=== PATIENT | female | born 1955 ===

== ENCOUNTER 2023-06-03 15:14 | Outpatient (CLI) | payer OTHER, SELFPAY | END 2023-06-03 15:15 | disposition home or self-care (01) | PROVIDERS: PCP Emergency Medicine; Visit Provider Emergency Medicine | DX: I10 Essential (primary) hypertension (principal); E78.5 Hyperlipidemia, unspecified | CPT/HCPCS: 80048; 80061 ==

== ENCOUNTER 2024-08-10 11:37 | Outpatient (CLI) | payer OTHER, SELFPAY | END 2024-08-10 11:38 | disposition home or self-care (01) | PROVIDERS: PCP Emergency Medicine; Visit Provider Emergency Medicine | DX: R63.4 Abnormal weight loss (principal); Z68.1 Body mass index [BMI] 19.9 or less, adult | CPT/HCPCS: 80053; 84439; 84443; 84480; 86140 ==

== ENCOUNTER 2024-09-06 14:18 | Outpatient (CLI) | payer OTHER, SELFPAY | END 2024-09-06 14:19 | disposition home or self-care (01) | PROVIDERS: PCP Emergency Medicine; Visit Provider Emergency Medicine | DX: E05.90 Thyrotoxicosis, unspecified without thyrotoxic crisis or storm (principal); R06.02 Shortness of breath | CPT/HCPCS: 83520; 84439; 84443; 84481 ==

== ENCOUNTER 2024-10-03 13:41 | Outpatient (CLI) | payer OTHER, SELFPAY ==
--- NOTE | 2024-10-03 14:00 | CRLHL7_ITS ---
For Patients: As a result of the Century Cures Act, medical imaging exams and procedure reports are released immediately into your electronic medical record. You may view this report before your referring provider. If you have questions, please contact your health care provider. INDICATION: Unintentional weight loss. TECHNIQUE: CT chest, abdomen and pelvis acquired with 48 cc Isovue 370 IV contrast. COMPARISON: None. FINDINGS: CHEST Lungs and pleura: Lungs are clear. No suspicious nodules or infiltrates. Emphysema present. No effusions, thickening, or pneumothorax. Heart and vasculature: Mild ascending aortic aneurysm measuring 3.9 cm. Moderate cardiomegaly with particular enlargement of the left atrium and ventricle. Unremarkable pulmonary artery. No pulmonary embolism. Lymph node/mediastinum: No mediastinal, hilar, or axillary adenopathy. Chest wall: Normal. Bones: No suspicious bone lesions. ABDOMEN AND PELVIS: Liver: Small cystic lesion of doubtful significance in the lower lateral right lobe. Liver is otherwise unremarkable. Gallbladder and bile ducts: There is gallbladder hydrops. Common bile duct is dilated up to 11 mm. Proximal pancreatic duct is also dilated. Pancreas: Proximal dilatation of the pancreatic duct. Remainder of the pancreas is unremarkable. Spleen: Normal in caliber. No masses. Adrenal glands: Unremarkable. No masses. Kidneys: A 2 cm nodule or dense cystic lesion in the lateral cortex of the left kidney series 2, image 165. A separate simple appearing cysts also in the left kidney. Normal right kidney. GI tract: Nonspecific bowel pattern with scattered air and stool. No overt obstructive changes. No sign of mass or inflammation. Vasculature: Unremarkable. Mesenteric arteries are patent. Lymph nodes: No lymphadenopathy. Omentum/peritoneum/retroperitoneum/abdominal wall: No masses or infiltration. No free air or significant free fluid. Pelvic organs: 3 cm right adnexal simple appearing cyst. Pelvic structures otherwise unremarkable. Bones: No suspicious bone lesions. IMPRESSION: 1. Mild ascending aortic aneurysm and cardiomegaly. 2. No suspicious lesions in the chest. 3. Gallbladder hydrops with dilatation of the common bile duct and proximal pancreatic duct suggesting a double duct sign which could indicate an occult lesion in the pancreatic head or at the ampulla of Vater. Further evaluation with MRCP or ERCP should be considered for further assessment. 4. Indeterminate 2 cm dense cystic lesion or nodule in the left kidney. Ultrasound evaluation is recommended to assess whether this is a true cyst or solid nodule. 5. 3 cm simple right adnexal cyst. This is likely benign but warrants annual surveillance to ensure stability and exclude a malignant lesion in this patient`s age category. Please note that all CT scans at this facility use dose modulation, iterative reconstruction, and/or weight-based dosing when appropriate to reduce radiation dose to as low as reasonably achievable. Dictated by Kuldip Garzon MD @ 10/08/2024 7:32:50 AM (Electronically Signed)
[2024-10-03 14:12] LABS: Creatinine* 0.7 mg/dL (0.5-1.5); Estimated Glomerular Filt Rate 94 ml/min
== END 2024-10-03 13:42 | disposition home or self-care (01) ==
LOC: CT 13:42
PROVIDERS: PCP Emergency Medicine; Visit Provider Emergency Medicine
DX: R63.4 Abnormal weight loss (principal); I71.21 Aneurysm of the ascending aorta, without rupture; N28.1 Cyst of kidney, acquired
CPT/HCPCS: 36415; 71260; 74177; 82565; Q9967

== ENCOUNTER 2024-12-14 12:50 | Outpatient (CLI) | payer OTHER, SELFPAY ==
--- NOTE | 2024-12-14 13:00 | CRLHL7_ITS ---
For Patients: As a result of the Century Cures Act, medical imaging exams and procedure reports are released immediately into your electronic medical record. You may view this report before your referring provider. If you have questions, please contact your health care provider. INDICATION: Hydropic gallbladder. COMPARISON: CT scan of the chest, abdomen, and pelvis dated 03 October 2024. TECHNIQUE: Abdominal MRI with T1 in- and out of phase, T2, diffusion weighted, and progressively delayed post-contrast images. Intravenous gadolinium administered. Heavily T2 weighted 2D and 3D MRCP images. FINDINGS: No fatty infiltration of the liver. 6 mm cyst in the lateral aspect of segment 8 of the liver. No other focal abnormalities identified in the visualized portions of the liver, spleen, pancreas, and adrenal glands. 2.2 cm homogeneous enhancing mass in the interpolar region of the left kidney. 2.1 cm cyst extending off the superior pole of the left kidney. 6 mm cyst in the superior pole of the right kidney. The kidneys are otherwise unremarkable. No hydronephrosis. No adenopathy. Mild dilation of the common bile duct measuring 8 mm, previously 1.1 cm. No intrahepatic bile duct dilation. No filling defects in the biliary system. Normal size of the main pancreatic duct. Impression : 1. Mild dilation of the common bile duct is improved. No choledocholithiasis. 2. 2.2 cm homogeneous enhancing mass in the interpolar region of the left kidney could represent a renal cell carcinoma. Recommend urology consultation. Dictated by Miki Oconnell MD @ 12/15/2024 10:58:37 AM (Electronically Signed)
== END 2024-12-14 12:51 | disposition home or self-care (01) ==
LOC: MRI 12:50
PROVIDERS: PCP Family Medicine; Visit Provider Physician Assistant Medical
DX: K82.1 Hydrops of gallbladder (principal); K76.89 Other specified diseases of liver; N28.89 Other specified disorders of kidney and ureter; R93.5 Abnormal findings on diagnostic imaging of other abdominal regions, including retroperitoneum
CPT/HCPCS: 74183; A9575

== ENCOUNTER 2025-01-18 13:50 | Outpatient (CLI) | payer OTHER, SELFPAY | END 2025-01-18 13:51 | disposition home or self-care (01) | LOC: NFLDREF 02-02 16:25 | PROVIDERS: PCP Family Medicine; Referring Provider Family Medicine; Visit Provider Family Medicine | DX: Z00.00 Encounter for general adult medical examination without abnormal findings (principal); Z13.6 Encounter for screening for cardiovascular disorders | CPT/HCPCS: 80053; 80061 ==